=== PATIENT | female | born 1990 | race Caucasian/White ===

== ENCOUNTER 2021-06-14 15:47 | Emergency (ER) | payer MEDICAID, SELFPAY ==
[2021-06-14 17:49] VITALS: BP 113/43; PULSE 94; RESP 17; TEMP 36.7; O2SAT 100; BMI 32.3
== END 2021-06-14 18:58 | disposition left against medical advice (07) ==
PROVIDERS: Emergency Provider Emergency Medicine; PCP Internal Medicine
DX: L08.9 Local infection of the skin and subcutaneous tissue, unspecified (principal)
CPT/HCPCS: 99281; 99282

== ENCOUNTER 2021-06-15 10:12 | Emergency (ER) | payer OTHER, MEDICAID, SELFPAY ==
[2021-06-15 10:14] VITALS: BP 129/33; PULSE 77; RESP 18; TEMP 35.9; O2SAT 100; BMI 32.3
--- NOTE | 2021-06-15 11:07 | ED.SKABFB ---
HPI - Skin/Abscess/Foreign Bdy General Chief complaint: Extremity Injury, Upper Stated complaint: HAND INJ WORK RELATED Time Seen by Provider: 06/15/21 10:53 Source: patient and family Mode of arrival: ambulatory Limitations: no limitations History of Present Illness complaint: abscess/boil Onset (ago): week(s) (1) Location: R hand (4th digit ) Severity: severe Severity scale (1-10): >10 Quality: aching and constant Pain Consistency: constant Relieving factors: none Exacerbating factors: palpation and movement Context: none Associated symptoms: denies other symptoms Treatments prior to arrival: none Related Data Previous Rx's Medication Instructions Recorded acetaminophen 500 mg tablet 1,000 mg PO QID PRN #14 tab 06/15/21 (Tylenol Extra Strength) bacitracin zinc 500 unit/gram 1 appl TOPICAL TID #28 g 06/15/21 topical ointment (Antibiotic (bacitracin zinc)) cephalexin 500 mg capsule 500 mg PO Q6H 10 Days #40 cap 06/15/21 doxycycline monohydrate 100 mg 100 mg PO BID 10 Days #20 cap 06/15/21 capsule ibuprofen 800 mg tablet 800 mg PO Q8H PRN #14 tab 06/15/21 oxycodone 5 mg tablet 5 mg PO Q6H PRN #14 tab 06/15/21 Allergies Allergy/AdvReac Type Severity Reaction Status Date / Time No Known Allergies Allergy Verified 06/15/21 10:13 [No Known Allergies*] Review of Systems Review of Systems: Constitutional : No Fever, No Chills, Cardiovascular : No Chest Pain, No SOB Respiratory : No Dyspnea Gastrointestinal : No abdominal pain Musculoskeletal : No Joint Swelling Skin : positive skin abscess and surrounding erythema, no skin laceration, No Foreign bodies, No rash Neuro : No Weakness, No Numbness/tingling Psych : No SI/HI/thoughts of self injury Yes all other systems are reviewed and are negative [facility] Past Medical History Attestation statement: The following information was validated with the patient. Medical History No pertinent past medical history Social History Social History Advance Directives: No Patient : No Physical Exam Vital Signs: Vital Signs: Last Vital Signs Temp 96.7 F L 06/15/21 10:14 Pulse 77 06/15/21 10:14 Resp 18 06/15/21 10:14 BP 129/33 L 06/15/21 10:14 Pulse Ox 100 06/15/21 10:14 Body Mass Index 32.3 vital signs have been reviewed as normal and appeared to be correct. Blood pressure hypertensive at 129/33. Heart rate normal. Respiration rate normal. Temperature normal. Oxygen saturation normal. Appearance: Alert. Oriented X3. No acute distress. Head: Normal external exam. Normocephalic. Atraumatic. Eyes: PERRLA. EOMI. Conjunctiva and sclera normal. Eyelids normal. ENT: Pharynx normal. Uvula midline. Moist mucous membranes. Neck: Normal inspection. Neck supple. FROM. CVS: Normal heart rate and rhythm. Respiratory: No respiratory distress. Painless inspiration. Skin: Skin warm and dry. Normal skin color. Normal skin turgor. No rashes/lesions/lacerations noted. Extremities: to right hand 4th digit at the distal DIP aspect pt has moderate sts, ttp, erythema and calor c/w paronychia with cellulitis possibly a felon. No streaking. Not consistent with tenosynovitis. Otherwise all other Extremities exhibit normal range of motion and nontender. Neuro: Oriented X 3. No motor deficit. No sensory deficit. Reflexes normal. Normal steady gait. No focal neuro deficits noted. Vascular: + radial pulses/+ 2 distal pedal pulses/+2 dorsalis pedis b/l. Normal cap refill. No cyanosis noted to upper extremity nails and lower extremity toes nails. Course Course Course Narrative: 31-year-old female presenting to the ED with a paronychia to her right hand 4th digit for the past week worse today. I was able to I and D the paronychia with needle aspiration patient tolerated procedure well. Although she still has soft tissue swelling to the pad of the finger therefore I consulted with orthopedic MILAD Cardenas who recommended having her soak in warm water and Epson salts will also DC home with doxycycline and Keflex along with instructions to return if any new or worsening symptoms such as inability to move the joint and to follow-up with orthopedic as well and primary care provider and to return if any new or worsening symptoms. Patient understands agrees with this plan. MDM - Skin/Abscess/Foreign Bdy Medical Records Attestation: I reviewed the patient's medical records. Procedures Abscess I/D Site: hand (Fourth digit paronychia) Side (if applicable): right Technique: needle aspiration Sent for culture/gram staining?: No Irrigation: Yes Packing used?: none Complications: other (No complications patient tolerated procedure well) Discharge Plan Discharge Clinical Impression: Paronychia of finger, Cellulitis of finger Patient Disposition: Home, Self-Care Instructions: Paronychia (ED), Cellulitis (ED) Additional Instructions: Apply warm compresses or place into warm soaks with Epson salt return if you are unable to move the finger or any new or worsening symptoms or if the redness up the hand. Follow-up with general hand surgeon. Return if any new or worsening symptoms and follow up with her primary care provider as well. Prescriptions: New ibuprofen 800 mg tablet 800 mg PO Q8H PRN (Reason: pain) Qty: 14 RF: 0 acetaminophen [Tylenol Extra Strength] 500 mg tablet 1,000 mg PO QID PRN (Reason: fever or pain) Qty: 14 RF: 0 doxycycline monohydrate 100 mg capsule 100 mg PO BID 10 Days Qty: 20 RF: 0 cephalexin 500 mg capsule 500 mg PO Q6H 10 Days Qty: 40 RF: 0 oxycodone 5 mg tablet 5 mg PO Q6H PRN (Reason: pain) Qty: 14 RF: 0 bacitracin zinc [Antibiotic (bacitracin zinc)] 500 unit/gram ointment 1 appl topical TID Qty: 28 RF: 0 Referrals: Adrianna Patricio MD [Primary Care Provider] - 2 days Carissa Katz MD [Physician] - 2 days Stand Alone Forms: Work/School Release Print Language: Arabic
[2021-06-15] MEDS: oxyCODONE HCl Immed Release 5 MG TABLET PO (11:40)
[2021-06-15] MEDS: cephALEXin 500 MG CAPSULE PO (11:40)
== END 2021-06-15 11:52 | disposition home or self-care (01) ==
PROVIDERS: Emergency Provider Emergency Medicine Emergency Medical Services; PCP Internal Medicine
DX: L03.011 Cellulitis of right finger (principal)
CPT/HCPCS: 10160; 99283; 99284

== ENCOUNTER 2021-06-20 12:39 | Outpatient (REF) | payer OTHER, MEDICAID, SELFPAY ==
--- NOTE | ~2021-06-20 | XR_ITS ---
EXAMINATION: XR HAND, RIGHT CLINICAL INFORMATION: Right hand pain COMPARISON: None TECHNIQUE: PA, lateral, and oblique views of the right hand. FINDINGS: There is no evidence of acute fracture or dislocation of the right hand. Mild soft tissue swelling seen about the distal aspect of the fourth finger. No gas within the soft tissues. No radiopaque foreign body. XR/XR hand RT min 3V IMPRESSION: No significant bony abnormality of the right hand identified.
== END 2021-06-20 12:40 | disposition home or self-care (01) ==
LOC: HO.HOSX 12:39
PROVIDERS: Visit Provider Orthopaedic Surgery
DX: L03.011 Cellulitis of right finger (principal)
CPT/HCPCS: 73130; 99202

== ENCOUNTER 2021-06-21 15:32 | Outpatient (REF) | payer MEDICAID, SELFPAY ==
[2021-06-21 15:47] LABS: MANUAL DIFF FLAG NO
[2021-06-21 16:08] LABS: Basophils Percent Auto 0.4 % (0-2); Eosinophils Absolute Auto 0.1 X10*3/uL (0.0-0.4); Hemoglobin 12.4 g/dl (12.0-16.0); Imm Gran Abs Auto 0.02 X10*3/uL (0.00-0.03); Imm Gran Pct Auto 0.3 % (0.0-0.4); Lymphocytes Absolute Auto 2.3 X10*3/uL (1.2-4.9); Lymphocytes Percent Auto 32.1 % (20-40); Mean Corpuscular HGB Conc 31.8 g/dl (31.0-35.0); Mean Corpuscular Hemoglobin 27.6 pg (27.0-33.0); Mean Corpuscular Volume 86.9 fL (80-98); Monocytes Absolute Auto 0.4 X10*3/uL (0.1-1.2); Monocytes Percent Auto 5.8 % (2-11); Neutrophils Absolute Auto 4.3 X10*3/uL (2.0-8.3); Neutrophils Percent Auto 60.4 % (45-73); Platelet Count 358 X10*3/uL (160-400); Red Blood Count 4.49 X10*6/uL (4.20-5.50); Red Cell Distribution Width 13.6 % (11.0-16.0); White Blood Count 7.1 X10*3/uL (4.8-10.8)
[2021-06-21 16:27] LABS: Alanine Aminotransferase 14 U/L (0-31); Albumin Level 4.3 g/dL (3.5-5.0); Alkaline Phosphatase 89 U/L (39-117); Anion Gap 13 (12-20); Aspartate Amino Transferase 17 U/L (5-31); Bilirubin Total 0.3 mg/dL (0.0-1.0); Blood Urea Nitrogen 8 mg/dL (9-16); Calcium 9.3 mg/dL (8.4-10.2); Carbon Dioxide 24 mmol/L (22-29); Chloride 107 mmol/L (96-108); Cholesterol 176 mg/dL; Estimated Glomerular Filt Rate > 60; Glucose Random 81 mg/dL (60-115); HDL Cholesterol 35 mg/dL; LDL Cholesterol Calculated 114 mg/dl; Potassium 4.5 mmol/L (3.3-5.1); Sodium 139 mmol/L (135-145); Total Protein 7.9 g/dL (6.5-8.0); Triglycerides 137 mg/dL
[2021-06-22 01:16] LABS: CT PCR NOT DETECTED (Not Detect.); NG PCR NOT DETECTED (Not Detect.)
[2021-06-27 12:56] LABS: Treponema pallidum Ab FTA ABS Nonreactive (Nonreactive)
== END 2021-06-21 15:33 | disposition home or self-care (01) ==
LOC: HO.LAB 15:32
PROVIDERS: PCP Internal Medicine; Visit Provider Internal Medicine
DX: Z00.00 Encounter for general adult medical examination without abnormal findings (principal); D50.8 Other iron deficiency anemias; Z11.3 Encounter for screening for infections with a predominantly sexual mode of transmission; Z13.31 Encounter for screening for depression
CPT/HCPCS: 80053; 80061; 85025; 86780; 87491; 87591

== ENCOUNTER 2022-09-04 15:47 | Outpatient (REF) | payer MEDICAID, SELFPAY ==
[2022-09-04 16:10] LABS: MANUAL DIFF FLAG NO
[2022-09-04 17:19] LABS: Basophils Absolute Auto 0.1 X10*3/uL (0.0-0.2); Basophils Percent Auto 0.7 % (0-2); Eosinophils Absolute Auto 0.2 X10*3/uL (0.0-0.4); Eosinophils Percent Auto 1.7 % (0-4); Hematocrit 37.1 % (37.0-47.0); Hemoglobin 11.2 g/dl (12.0-16.0); Imm Gran Abs Auto 0.02 X10*3/uL (0.00-0.03); Imm Gran Pct Auto 0.2 % (0.0-0.4); Lymphocytes Percent Auto 22.6 % (20-40); Mean Corpuscular HGB Conc 30.2 g/dl (31.0-35.0); Mean Corpuscular Hemoglobin 24.9 pg (27.0-33.0); Mean Corpuscular Volume 82.4 fL (80.0-98.0); Monocytes Absolute Auto 0.5 X10*3/uL (0.1-1.2); Monocytes Percent Auto 5.9 % (2-11); Neutrophils Absolute Auto 5.9 x10*3/uL (2.0-8.3); Neutrophils Percent Auto 68.9 % (45-73); Platelet Count 392 X10*3/uL (160-400); Red Cell Distribution Width 14.2 % (11.0-16.0); White Blood Count 8.6 X10*3/uL (4.8-10.8)
[2022-09-04 17:50] LABS: Alanine Aminotransferase 17 U/L (0-31); Albumin Level 4.2 g/dL (3.5-5.0); Alkaline Phosphatase 97 U/L (39-117); Anion Gap 13 (12-20); Aspartate Amino Transferase 19 U/L (5-31); Bilirubin Total 0.5 mg/dL (0.0-1.0); Blood Urea Nitrogen 9 mg/dL (9-16); Calcium 9.3 mg/dL (8.4-10.2); Carbon Dioxide 24 mmol/L (22-29); Chloride 108 mmol/L (96-108); Cholesterol 194 mg/dL; Estimated Glomerular Filt Rate > 60; Glucose Random 81 mg/dL (60-115); HDL Cholesterol 40 mg/dL; LDL Cholesterol Calculated 139 mg/dl; Potassium 4.6 mmol/L (3.3-5.1); Sodium 140 mmol/L (135-145); Total Protein 7.6 g/dL (6.5-8.0); Triglycerides 77 mg/dL
[2022-09-04 18:06] LABS: Thyroid Stimulating Hormone 1.42 uIU/mL (0.32-4.0)
[2022-09-05 13:34] LABS: Hepatitis B Viral DNA Qn - cp <1.00 NOT DETECTED Log IU/mL (NOT DETECTED); Hepatitis B Viral DNA Qn-IU/mL <10 NOT DETECTED IU/mL (NOT DETECTED)
[2022-09-06 08:54] LABS: Rubella IgG Antibody <0.90 Index
[2022-09-07 11:58] LABS: TS Negative Control Passed; TS Panel A 0; TS Panel B 0; TS Positive Control Passed; TSpotTB Negative (Negative)
== END 2022-09-04 15:48 | disposition home or self-care (01) ==
LOC: HO.LAB 15:47
PROVIDERS: PCP Internal Medicine; Visit Provider Internal Medicine
DX: Z00.00 Encounter for general adult medical examination without abnormal findings (principal); D50.8 Other iron deficiency anemias; F90.0 Attention-deficit hyperactivity disorder, predominantly inattentive type; R00.2 Palpitations; Z11.1 Encounter for screening for respiratory tuberculosis
CPT/HCPCS: 36415; 80053; 80061; 84443; 85025; 86481; 86735; 86762; 86765; 86787; 87517

== ENCOUNTER 2024-03-11 10:42 | Outpatient (REF) | payer MEDICAID, SELFPAY ==
[2024-03-11 10:58] LABS: MANUAL DIFF FLAG NO
[2024-03-11 11:00] LABS: Basophils Percent Auto 0.6 % (0-2); Eosinophils Absolute Auto 0.1 X10*3/uL (0.0-0.4); Hematocrit 39.9 % (37.0-47.0); Hemoglobin 12.7 g/dl (12.0-16.0); Imm Gran Abs Auto 0.02 X10*3/uL (0.00-0.03); Imm Gran Pct Auto 0.3 % (0.0-0.4); Lymphocytes Absolute Auto 1.6 X10*3/uL (1.2-4.9); Mean Corpuscular HGB Conc 31.8 g/dl (31.0-35.0); Mean Corpuscular Hemoglobin 27.4 pg (27.0-33.0); Mean Corpuscular Volume 86.2 fL (80.0-98.0); Mean Platelet Volume 10.8 fL (9.4-12.3); Monocytes Absolute Auto 0.3 X10*3/uL (0.1-1.2); Monocytes Percent Auto 5.1 % (2-11); Neutrophils Absolute Auto 4.7 x10*3/uL (2.0-8.3); Platelet Count 302 X10*3/uL (160-400); Red Blood Count 4.63 X10*6/uL (4.20-5.50); Red Cell Distribution Width 14.7 % (11.0-16.0); White Blood Count 6.7 X10*3/uL (4.8-10.8)
[2024-03-11 11:35] LABS: Alanine Aminotransferase 11 U/L (0-31); Albumin Level 4.3 g/dL (3.5-5.0); Alkaline Phosphatase 89 U/L (39-117); Anion Gap 10 (12-20); Aspartate Amino Transferase 14 U/L (5-31); Bilirubin Total 0.4 mg/dL (0.0-1.0); Blood Urea Nitrogen 7 mg/dL (9-16); Calcium 9.5 mg/dL (8.4-10.2); Carbon Dioxide 26 mmol/L (22-29); Chloride 109 mmol/L (96-108); Cholesterol 171 mg/dL (<200); Estimated Glomerular Filt Rate > 60; Glucose Random 95 mg/dL (60-115); HDL Cholesterol 39 mg/dL (>40); LDL Cholesterol Calculated 116 mg/dL (<100); Potassium 4.3 mmol/L (3.3-5.1); Sodium 141 mmol/L (135-145); Total Protein 7.6 g/dL (6.5-8.0); Triglycerides 81 mg/dL (<150)
[2024-03-11 11:51] LABS: Thyroid Stimulating Hormone 0.73 uIU/mL (0.32-4.0)
[2024-03-12 04:01] LABS: Syphilis Screen Nonreactive (Nonreactive)
[2024-03-12 04:09] LABS: HIV AB/AG Nonreactive (Nonreactive); HIV Num 1 0.05 S/CO (0.00-0.99)
== END 2024-03-11 10:43 | disposition home or self-care (01) ==
LOC: HO.10HDL 10:42
PROVIDERS: Visit Provider Internal Medicine
DX: Z00.00 Encounter for general adult medical examination without abnormal findings (principal); J45.909 Unspecified asthma, uncomplicated; N92.0 Excessive and frequent menstruation with regular cycle; Z11.3 Encounter for screening for infections with a predominantly sexual mode of transmission; Z12.4 Encounter for screening for malignant neoplasm of cervix
CPT/HCPCS: 36415; 80053; 80061; 84443; 85025; 86780; 87389